=== PATIENT | male | born 1960 | race Caucasian/White ===

== ENCOUNTER 2024-01-10 10:38 | Outpatient (AMB) | payer OTHER, SELFPAY ==
[2024-01-10 10:40] VITALS: BP 142/72; PULSE 103; O2SAT 96; BMI 35.7
--- NOTE | 2024-01-10 10:40 | A.OFFPC_ITS ---
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 Allergies Latex, Natural Rubber Allergy (Mild, Verified 01/10/24 10:46) Hives Tobacco use date assessed: 01/10/24 Fall risk assessment: 1 Fall in past year Last assessed Fall Risk: 01/10/24 Dental Screening Dental Screen Date: 01/10/24 Did you have a dental visit in the last 12 months?: Yes Did you have a dental problem in the last 6 months where you did not have access to dental care?: No Was dental information given to patient?: Patient has dentist HPI HPI Comments History of Present Illness Details This is a 63-year-old male with a past medical history of hypothyroidism, hypercholesterolemia, asthma, hypertension, anxiety and rheumatoid arthritis presenting to [facility] care. His previous practice was in [place] He was last seen a little over a year ago. Transfer records pending. Rheumatoid arthritis, gout-followed by Dr. Dangelo. Current regimen is Plaquenil and allopurinol. Endorses stable symptoms. He has eye exams at the [facility] retina care center. Hypertension-prescribed amlodipine, carvedilol and lisinopril. He received prescriptions from his intramural director at [facility], Dr. Castañeda. He was referred to cardiology for evaluation of shortness of breath with exertion. Patient reports having a normal stress test. He said they did an echo, and there was something that was mildly abnormal, and they are repeating it in 1 year. He does not remember the details of this. He denies chest pain, leg swelling, palpitations. Pkmsqub-hgzr-zwyoixfoqa on Effexor 150 mg daily. Hypothyroidism-taking levothyroxine 125 mcg daily for 6 days and 1-1/2 tablets 1 day per week. Patient recalls having thyroid ultrasound which showed asymmetric thyroid tissue. Biopsy was negative per patient. GERD-symptoms for the past 15 years. On omeprazole 20 mg daily. He has recurrent symptoms if he misses doses. Does not take NSAIDs. Avoids trigger foods. Nonsmoker. He reports having a colonoscopy about 5 years ago, and he says he was told to return in 10 years. He has never had an endoscopy. Nonsmoker. No dysphagia. Asthma, allergies-no systemic steroids within the past year. Patient is on Pulmicort. He uses albuterol as needed. They requirement varies. If allergies are bad or he is sick he may use it every day but otherwise uses this once or twice per week. He is on Amara and Flonase. Medications help but do not completely alleviate symptoms. Endorses chronic postnasal drip and congestion. He gets sinus infections, but he does not get more than one or 2 a year. Years ago he received allergy injections. He has a dog, and he says he is allergic. He wonders if allergy symptoms and congestion contribute to chronic balance issues that started around when he had COVID. He discussed this with his cotton broker, and he is getting physical therapy to help strengthen and improve balance at the [facility] treatment center. Reports having a CT scan of the head within the past year that was normal. ROS: Constitutional: No unexplained weight loss, fever, chills or night sweats. ENT: No hearing loss, ear pain, sore throat, sinus pain. see HPI Respiratory: see HPI Cardiovascular: No chest pain, chest pressure or chest discomfort. No pa lpitations or pedal edema. Psychiatric: No depression. No SI/HI. Physical exam: Constitutional: Alert, in no distress. Head: Normocephalic. Eyes: Pupils are equal, round and reactive to light. Extraocular muscles intact. Ear, Nose and Throat: Ear canals are completely occluded by brown cerumen. Nasal mucosa pale. Inferior turbinates 1+.. No nasal discharge. No oral lesions. Neck: Supple, Full range of motion. No lymphadenopathy. Respiratory: Clear to auscultation. Cardiovascular: S1 S2 regular. No murmurs. Extremities: Warm and well perfused. No clubbing, cyanosis or edema. [facility] Medical History (Updated 01/10/24 @ 13:15 by TG Lacey) GERD (gastroesophageal reflux disease) Cerumen impaction Anxiety Mild persistent asthma in adult without complication Jailene's disease History of inguinal hernia Pure hypercholesterolemia Essential hypertension Balance problem Bilateral tinnitus Rhinosinusitis Rheumatoid arthritis Hernia Sinus problem COVID Pneumonia Asthma Surgical History (Updated 01/10/24 @ 11:29 by TG Lacey) History of inguinal hernia repair History of umbilical hernia repair Family History (Updated 01/10/24 @ 11:31 by TG Lacey) Mother Asthma Arthritis Father Heart attack Maternal Aunt Breast cancer Maternal Grandfather Stomach cancer Pancreatic cancer Social History (Updated 01/10/24 @ 10:58 by Dionna Brannon [facility]) Household Members Other:: brother Both parents involved: No Caregiver staying overnight: No Housing: House Are you a primary patient care provider to a significant other at home: No Do you presently have visiting nurse or other home services: No 75 years or older and lives alone: No Alcohol intake: never Patient Tobacco Use Status: Never used Tobacco e-Cigarette/Vaping Use: Never Used Special madison needs: No Agree to transfusion: Yes service: No Current occupational status: retired Cognitive needs: No Hearing needs: No Vision needs: Yes (Patient wears glasses.) Questionnaire PHQ-9 Over the last 2 weeks, how often have you been bothered by any of the following problems? 1. Little interest or pleasure in doing things: not at all 2. Feeling down, depressed, or hopeless: several days 3. Trouble falling or staying asleep, or sleeping too much: not at all 4. Feeling tired or having little energy: several days 5. Poor appetite or overeating: not at all 6. Feeling bad about yourself - or that you are a failure or have let yourself or your family down: not at all 7. Trouble concentrating on things, such as reading the newspaper or watching television: not at all 8. Moving or speaking so slowly that other people could have noticed. Or the opposite - being so fidgety or restless that you have been moving around a lot more than usual: not at all 9. Thoughts that you would be better off or of hurting yourself in some way: not at all Total score: 2 Depression Screening Interpretation: Negative Depression Screening Done: Yes Source: Developed by Drs. Dany Mcgovern, Alida Flores, Ranjit Triana and colleagues, with an educational zeina from [employer] Thrive Questionnaire Date Thrive assessed: 01/10/24 I am a: Patient What is your living situation today?: I have a steady place to live Within the past 12 months, did the food you bought not last and you didn't have the money to get more?: Never true Within the past 12 months, did you worry whether your food would run out before you got money to buy more?: Never true Do you have trouble paying for medicines?: No Do you have trouble getting transportation to medical appointments?: No Do you have trouble paying your heating and electricity bill?: No Do you have trouble taking care of your child, family member or friend?: No Do you have trouble with day-to-day activities such as bathing, preparing meals, shopping, managing finances, etc.?: Yes (Balance is a factor) Are you currently unemployed and looking for a job?: No Are you interested in more education?: No THRIVE Score: 0 AUDIT C Alcohol Use Questionnaire (AUDIT-C) 1. How often do you have a drink containing alcohol?: Monthly or less 2. How many drinks containing alcohol do you have on a typical day when you are drinking?: 1 or 2 3. How often do you have six or more drinks on one occasion?: Never Total Score: 1 ZARIA-7 AMB Questionnaire ZARIA-7 Date ZARIA - 7 assessed: 01/10/24 Feeling nervous, anxious, or on edge: 1 = Several days Not being able to stop or control worryin = Not at all Worrying too much about different things: 1 = Several days Trouble relaxin = Not at all Being so restless that it is hard to sit still: 0 = Not at all Becoming easily annoyed or irritable: 1 = Several days (once in a while) Feeling afraid as if something awful might happen: 0 = Not at all Total ZARIA-7 score (0-4 normal; 5-9 mild; 10-14 moderate; 15-21 severe): 3 Source: Developed by Drs. Dany Mcgovern, Alida Flores, Ranjit Triana and colleagues, with an educational zeina from [employer] ACT Questionnaire In the past 4 weeks, how much of the time did your asthma keep you from getting as much done at work, school or at home?: Some of the time During the past 4 weeks, how often have you had shortness of breath?: 1-2 times a week During the past 4 weeks, how often did your asthma symptoms wake you up at night or earlier than usual in the morning?: Once or twice per week During the past 4 weeks, how often have you had to use your rescue inhaler or nebulizer medication?: 2-3 times a week How would you rate your asthma control during the past 4 weeks?: Well controlled Score: 18 Physical exam (Primary Care) Vital Signs: Last Vital Signs Pulse 103 H 01/10/24 10:40 BP 142/72 H 01/10/24 10:40 Pulse Ox 96 01/10/24 10:40 Oxygen Delivery Method Room Air 01/10/24 10:40 BMI result Body Mass Index 35.7 Tobacco/Smoking Status: Tobacco use Status Tobacco use date assessed 01/10/24 01/10/24 11:10 Patient Tobacco Use Status Never used Tobacco 01/10/24 11:10 e-Cigarette/Vaping Use Never Used 01/10/24 11:10 PHQ-9: PHQ-9 Score PHQ-9: Total score 2 01/10/24 11:10 Depression Screening Interpretation: Negative Thrive Assessment: Date of Thrive Assessment Date Thrive assessed 01/10/24 01/10/24 11:10 Assessment and Plan Assessment & Plan (1) Pure hypercholesterolemia: Code(s): E78.00 - Pure hypercholesterolemia, unspecified Plan: Continue atorvastatin and check lipid profile. (2) Essential hypertension: Code(s): I10 - Essential (primary) hypertension Plan: Patient admits he a little anxious of the appointment today. BP and heart rate mildly elevated. Continue meds. Recheck at follow up in 1-2 weeks. Avoid caffeine. Follow low-sodium diet. 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 Continue levothyroxine. (4) Rhinosinusitis: Code(s): J32.9 - Chronic sinusitis, unspecified Plan: Continue Amara and Flonase. Referred to Allergy and immunology. (5) Mild persistent asthma in adult without complication: Code(s): J45.30 - Mild persistent asthma, uncomplicated Plan: Stable. Continue Pulmicort and albuterol as needed. (6) Anxiety: Code(s): F41.9 - Anxiety disorder, unspecified Plan: Stable. Continue Effexor. (7) Cerumen impaction: Code(s): H61.20 - Impacted cerumen, unspecified ear Qualifiers: Laterality: bilateral Qualified Code(s): H61.23 - Impacted cerumen, bilateral Plan: Debrox drops and return for irritation. This may be contributing to balance issues. Follow up in 1-2 weeks for irrigation. (8) GERD (gastroesophageal reflux disease): Code(s): K21.9 - Gastro-esophageal reflux disease without esophagitis Qualifiers: Esophagitis presence: without esophagitis Qualified Code(s): K21.9 - Gastro-esophageal reflux disease without esophagitis Plan: Symptoms are controlled on omeprazole, but he is taken it daily for the past 15 years. He has never had an EGD. Refer to Gastroenterology. Continue avoidance of trigger foods. Orders: Orders TSH reflex Free T4 Today E06.3 - Autoimmune thyroiditis Basic Metabolic Panel Today I10 - Essential (primary) hypertension Prostate Specific Antigen Scr Today Z12.5 - Encounter for screening for malignant neoplasm of prostate Lipid Panel Today E78.00 - Pure hypercholesterolemia, unspecified Referrals Gastroenterology Referral K21.9 - Gastro-esophageal reflux disease without esophagitis Allergy & Immunology Referral J32.9 - Chronic sinusitis, unspecified, J45.30 - Mild persistent asthma, uncomplicated Medications: New albuterol sulfate 90 mcg/actuation 2 puffs inhalation Q4H PRN 8.5 grams 2RF Cough wheezing or shortness of breath levothyroxine Take 1 tablet by mouth daily Wednesday through Wednesday and 1.5 tablets by mouth on Wednesday. 125 mcg PO DAILY 96 tabs 3RF carbamide peroxide 6.5% (Debrox) 5 drps otic (ears) DAILY 4 days 15 mL 0RF atorvastatin 20 mg PO DAILY 90 tabs 3RF venlafaxine ER 150 mg PO DAILY 90 caps 3RF Coding Level of Care Code New Pt Level 4 (48125) Complex EM visit Add On G2211 Diagnoses Pure hypercholesterolemia E78.00 Essential hypertension I10 Jailene's disease E06.3 Rhinosinusitis J32.9 Mild persistent asthma in adult without complication J45.30 Anxiety F41.9 Bilateral impacted cerumen H61.23 Laterality: bilateral Gastroesophageal reflux disease without esophagitis K21.9 Esophagitis presence: without esophagitis
== END 2024-01-10 11:50 | disposition home or self-care (01) ==
PROVIDERS: PCP Physician Assistant Medical; Visit Provider Physician Assistant Medical
DX: E78.00 Pure hypercholesterolemia, unspecified (principal); I10 Essential (primary) hypertension; E06.3 Autoimmune thyroiditis; J32.9 Chronic sinusitis, unspecified; J45.30 Mild persistent asthma, uncomplicated; F41.9 Anxiety disorder, unspecified; H61.23 Impacted cerumen, bilateral; K21.9 Gastro-esophageal reflux disease without esophagitis
CPT/HCPCS: 99204; G2211

== ENCOUNTER 2024-01-31 14:37 | Outpatient (AMB) | payer OTHER, SELFPAY ==
--- NOTE | 2024-01-31 14:43 | A.OFFPC_ITS ---
Vital Signs 01/31/24 14:49 Height 5 ft 2.01 in Weight 206 lb 2 oz BMI 37.7 BP 100/70 Blood Pressure Location Lt brachial Position Sitting Respiration 20 Pulse 80 Pulse Source Palpation Temp 98.8 F Temp Source Oral Intake Visit Reasons: BP recheck and ear flush 30 minutes Intake Note: b/p recheck and bilateral ear lavage Allergies Latex, Natural Rubber Allergy (Mild, Verified 01/31/24 14:45) Hives Tobacco use date assessed: 01/10/24 Fall risk assessment: 1 Fall in past year Last assessed Fall Risk: 01/31/24 Dental Screening Dental Screen Date: 01/31/24 Did you have a dental visit in the last 12 months?: Yes Did you have a dental problem in the last 6 months where you did not have access to dental care?: Yes Was dental information given to patient?: Patient has dentist HPI HPI Comments History of Present Illness Details This is a 63-year-old male with a past medical history of hypothyroidism, hypercholesterolemia, asthma, hypertension, anxiety and rheumatoid arthritis presenting for a BP check and ear lavage. Hypertension-prescribed amlodipine, carvedilol and lisinopril. 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 Castañeda. He was referred to cardiology for evaluation of shortness of breath with exertion. Patient reports having a normal stress test. He said they did an echo, and there was something that was mildly abnormal, and they are repeating it in 1 year. He does not remember the details of this. He denies chest pain, leg swelling, palpitations. His blood pressure was mildly elevated as well as his heart rate at his initial visit. This is not the case today. He was a little bit nervous at the 1st appointment. The patient used Debrox drops for 4 days to have his ears flushed today. He was contacted by Allergy and immunology. He will call them back to set up an appointment. He endorsed chronic balance issues that started when he had COVID 3 years ago. 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 He's able to control it more with PT. He had a CT scan done at [facility] within the past year which was normal. He would like to see Neurology there for evaluation. No room spinning or lightheadedness. ROS: Constitutional: No unexplained weight loss, fever, chills or night sweats. ENT: No hearing loss, ear pain, sore throat, sinus pain. see HPI Respiratory: see HPI Cardiovascular: No chest pain Neurologic: No headache, numbness, tingling, seizures, tremors. Physical exam: Constitutional: Alert, in no distress. Head: Normocephalic. Eyes: Pupils are equal, round and reactive to light. Extraocular muscles intact. Ear, Nose and Throat: Ear canals are completely occluded by brown cerumen prior to procedure. After irrigation canals are clear, TMs zambrano, intact, good light reflexes. Nasal mucosa pale. Inferior turbinates 1+.. No nasal discharge. No oral lesions. Neck: Supple, Full range of motion. No lymphadenopathy. Neurologic:?Alert and oriented x 3, no focal deficits observed, CN 2-12 intact, muxqwk-zqez-cudfrg normal, sensation equal and symmetric, strength UE and LE 5/5 bilaterally, reflexes equal and symmetric.? Normal gait.? Patient unable to walk heel-toe or on his toes due to poor balance.? No pronator drift.? Negative Romberg. Respiratory: Clear to auscultation. Cardiovascular: S1 S2 regular. No murmurs. Extremities: Warm and well perfused. No clubbing, cyanosis or edema. [facility] Medical History (Updated 01/10/24 @ 13:15 by TG Lacey) GERD (gastroesophageal reflux disease) Cerumen impaction Anxiety Mild persistent asthma in adult without complication Jailene's disease History of inguinal hernia Pure hypercholesterolemia Essential hypertension Balance problem Bilateral tinnitus Rhinosinusitis Rheumatoid arthritis Hernia Sinus problem COVID Pneumonia Asthma Surgical History (Updated 01/10/24 @ 11:29 by TG Lacey) History of inguinal hernia repair History of umbilical hernia repair Family History (Updated 01/10/24 @ 11:31 by TG Lacey) Mother Asthma Arthritis Father Heart attack Maternal Aunt Breast cancer Maternal Grandfather Stomach cancer Pancreatic cancer Social History (Updated 01/10/24 @ 10:58 by Dionna Brannon CMA) Household Members Other:: brother Both parents involved: No Caregiver staying overnight: No Housing: House Are you a primary career technical counselor to a significant other at home: No Do you presently have visiting nurse or other home services: No 75 years or older and lives alone: No Alcohol intake: never Patient Tobacco Use Status: Never used Tobacco e-Cigarette/Vaping Use: Never Used Special madison needs: No Agree to transfusion: Yes service: No Current occupational status: retired Cognitive needs: No Hearing needs: No Vision needs: Yes (Patient wears glasses.) Questionnaire Thrive Questionnaire Date Thrive assessed: 01/10/24 ZARIA-7 AMB Questionnaire ZARIA-7 Date ZARIA - 7 assessed: 01/10/24 Source: Developed by Drs. Dany Mcgovern, Alida Flores, Ranjit Triana and colleagues, with an educational zeina from [employer]. Physical exam (Primary Care) Vital Signs: Last Vital Signs Temp 98.8 F 01/31/24 14:49 Pulse 80 01/31/24 14:49 Resp 20 01/31/24 14:49 BP 100/70 01/31/24 14:49 BMI result Body Mass Index 37.7 Tobacco/Smoking Status: Tobacco use Status Tobacco use date assessed 01/10/24 01/31/24 14:46 Patient Tobacco Use Status Never used Tobacco 01/31/24 14:46 e-Cigarette/Vaping Use Never Used 01/31/24 14:46 Thrive Assessment: Date of Thrive Assessment Date Thrive assessed 01/10/24 01/31/24 14:46 Assessment and Plan Assessment & Plan (1) Impacted cerumen of both ears: Code(s): H61.23 - Impacted cerumen, bilateral Plan: Successful irrigation today. Avoid using Q-tips. (2) Essential hypertension: Code(s): I10 - Essential (primary) hypertension Plan: Continue current regimen. (3) Balance problem: Code(s): R26.89 - Other abnormalities of gait and mobility Plan: Patient will see if symptoms resolve following cerumen removal today. Referred to [facility] Neurology at patient's request. If symptoms resolve we can cancel referral. MRI ordered. Plan Follow up in 6 months for CPE. Orders: Orders MR head/brain wo con Today R26.89 - Other abnormalities of gait and mobility Referrals Neurology Referral R26.89 - Other abnormalities of gait and mobility Coding Level of Care Code Est Pt Level 4 (92385) Complex EM visit Add On G2211 Diagnoses Impacted cerumen of both ears H61.23 Essential hypertension I10 Balance problem R26.89
[2024-01-31 14:49] VITALS: BP 100/70; PULSE 80; RESP 20; TEMP 37.1; BMI 37.7
== END 2024-01-31 15:28 | disposition home or self-care (01) ==
PROVIDERS: PCP Physician Assistant Medical; Visit Provider Physician Assistant Medical
DX: I10 Essential (primary) hypertension (principal); R26.89 Other abnormalities of gait and mobility; H61.23 Impacted cerumen, bilateral
CPT/HCPCS: 69209; 99213; G2211

== ENCOUNTER → 2024-03-24 16:41 | Outpatient (BNV) | payer OTHER, SELFPAY | PROVIDERS: PCP Physician Assistant Medical; Visit Provider Radiology Diagnostic Radiology | DX: R53.1 Weakness (principal) | CPT/HCPCS: 70551 ==

== ENCOUNTER 2024-03-24 16:48 | Outpatient (REF) | payer OTHER, SELFPAY ==
--- NOTE | ~2024-03-24 | MR_ITS ---
EXAMINATION: MR BRAIN WITHOUT CONTRAST CLINICAL INFORMATION: Weakness, bilaterally. Vertigo. Ringing in both ears. COMPARISON: None available. TECHNIQUE: MRI of the brain was obtained using routine sequences without contrast. FINDINGS: No restricted diffusion. No acute intracranial hemorrhage, mass effect, midline shift, hydrocephalus or herniation. Vyas-white matter differentiation is normal. Multifocal patchy deep periventricular white matter hyperintense T2 FLAIR signal involving centrum semiovale and mccracken radiata. Old lacunar infarcts with the cribriform shaped involving basal ganglia and mccracken radiata matter. Prominence of the extra-axial CSF spaces, cerebral sulci and ventricles likely central volume loss. Sellar/suprasellar region is normal. Craniocervical junction is intact and normal. Flow-void signal within the mean vessels is normal. There is a 2.3 cm lobulated isointense T1 hyperintense T2 FLAIR nonprotected signal lesion in the posterior superficial right parotid gland. MR/MR head/brain wo con IMPRESSION: No acute brain abnormality. Atrophy, cerebral. Small vessel occlusive disease. 2.3 cm lesion, superficial right parotid gland. 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
== END 2024-03-24 16:49 | disposition home or self-care (01) ==
LOC: HO.MRI 16:48
PROVIDERS: PCP Physician Assistant Medical; Visit Provider Physician Assistant Medical
DX: R26.89 Other abnormalities of gait and mobility (principal)
CPT/HCPCS: 70551

== ENCOUNTER 2024-09-04 14:08 | Outpatient (AMB) | payer OTHER, SELFPAY ==
--- NOTE | 2024-09-04 14:35 | A.OFFPC_ITS ---
Vital Signs 09/04/24 14:41 Weight 218 lb BP 126/82 Blood Pressure Location Lt brachial Position Sitting Respiration 14 Pulse 86 Pulse Source Pulse Oximeter Pulse Oximetry (%) 96 Oxygen Delivery Method Room Air Intake Visit Reasons: Annual PE Intake Note: Physical Technical Services Consultant Required: No Allergies Latex, Natural Rubber Allergy (Mild, Verified 09/04/24 14:36) Hives Tobacco use date assessed: 09/04/24 Fall risk assessment: No Falls in past year Last assessed Fall Risk: 09/04/24 Dental Screening Dental Screen Date: 01/31/24 HPI HPI Comments History of Present Illness Details This is a 64-year-old male with a past medical history of hypothyroidism, hypercholesterolemia, asthma, hypertension, anxiety and rheumatoid arthritis presenting for a physical exam. Hypertension-prescribed amlodipine, carvedilol and lisinopril. 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 Castañeda. Patient saw Allergy and immunology at a got a last week. They switched his inhaler. He is also going to have a chest x-ray done and blood work to evaluate allergies. As you recall he has chronic balance issues that started when he had COVID 3 years ago. He discussed it with his senior oracle pl sql developer, and he is getting physical therapy to help strengthen and improve balance at the [facility] treatment center. He's able to control it more with PT. He has an appointment at [facility] in 12/22/2024. No room spinning or lightheadedness. He had COVID-19 again a month ago, but he is recovered. 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 He had fasting labs done, and his LDL cholesterol is elevated at 116. He is on 20 mg of atorvastatin. He also reported having a lump for a couple of years in the parotid area, and his prior PCP thought it has been a lymph node. He was agreeable to ENT consult, but he did not hear about this. He has no history of tobacco use. His fasting glucose level was 108 when he had blood work done on 05/18/2024. Hemoglobin A1c was ordered, but he did not have it completed yet. Labs 05/18/2024 Total cholesterol 250 Triglycerides 287 LDL 116 HDL 49 PSA 0.5 Creatinine 0.87 GFR 96 AST 23 ALT 29 TSH 3.64 Colonoscopy: [facility] repeat in 10 years. UTD. He will get the high dose flu vaccine and tetanus vaccination at the pharmacy. We only had Boostrix here which may contain latex , and he has an allergy. ROS: Constitutional: No unexplained weight loss, fever, chills or night sweats. Eyes: No vision changes, blurry vision, double vision, eye pain, eye redness, eye discharge. ENT: No hearing loss, sneezing, congestion, runny nose or sore throat. Respiratory: No shortness of breath, cough or sputum production. Cardiovascular: No chest pain, chest pressure or chest discomfort. No palpitations or pedal edema. Gastrointestinal: No anorexia, nausea, vomiting or diarrhea. No abdominal pain or blood in stool. Genitourinary: No dysuria, hematuria, urinary frequency. Neurologic: No headache, syncope, unilateral weakness, ataxia, numbness or tingling in the extremities. Musculoskeletal: No back pain Hematologic/Lymphatics: No bleeding or bruising. No painful lymph nodes. Skin: No rash or itching. Endocrine: No cold or heat intolerance. No polyuria or polydipsia. Psychiatric: No SI/HI. Physical exam: Constitutional: Alert, in no distress. Head: Normocephalic. Eyes: Pupils are equal, round and reactive to light. Extraocular muscles intact. Ear, Nose and Throat: Canals clear. TMs normal. Normal nasal mucosa. No nasal discharge. No oral lesions. Neck: Supple, Full range of motion. No lymphadenopathy. No palpable thyroid masses. Respiratory: Clear to auscultation. Cardiovascular: S1 S2 regular. No murmurs. No carotid bruits. Gastrointestinal: Abdomen soft, non-tender, non-distended. Normal bowel sounds. No palpable masses. Genitourinary: Deferred Neurologic: No focal neurological deficits. Symmetric patellar reflexes. Moves all extremities spontaneously. Sensation intact bilaterally. Skin: No rashes or lesions. Musculoskeletal: No gross deformities. Normal range of motion. Extremities: Warm and well perfused. No clubbing, cyanosis or edema. 3+ peripheral pulses bilaterally. Psychiatric: Normal mood and affect [facility] Medical History (Updated 09/05/24 @ 09:28 by TG Lacey) Old lacunar stroke without late effect Small vessel disease, cerebrovascular Routine physical examination Mass of right parotid gland IFG (impaired fasting glucose) GERD (gastroesophageal reflux disease) Cerumen impaction Anxiety Mild persistent asthma in adult without complication Jailene's disease History of inguinal hernia Pure hypercholesterolemia Essential hypertension Balance problem Bilateral tinnitus Rhinosinusitis Rheumatoid arthritis Hernia Sinus problem COVID Pneumonia Asthma Surgical History History of inguinal hernia repair History of umbilical hernia repair Family History Mother Asthma Arthritis Father Heart attack Maternal Aunt Breast cancer Maternal Grandfather Stomach cancer Pancreatic cancer Social History (Updated 09/04/24 @ 16:35 by Carmen Weller CMA) Household Members Other:: brother Both parents involved: No Caregiver staying overnight: No Housing: House Are you a primary career and technology education teacher to a significant other at home: No Do you presently have visiting nurse or other home services: No 75 years or older and lives alone: No Alcohol intake: current Patient Tobacco Use Status: Never used Tobacco e-Cigarette/Vaping Use: Never Used Use of substances other than those prescribed or required for medical reasons: No Special madison needs: No Agree to transfusion: Yes service: No Current occupational status: retired Cognitive needs: No Hearing needs: No Vision needs: Yes (Patient wears glasses.) Questionnaire PHQ-9 Over the last 2 weeks, how often have you been bothered by any of the following problems? 1. Little interest or pleasure in doing things: several days 2. Feeling down, depressed, or hopeless: several days 3. Trouble falling or staying asleep, or sleeping too much: several days 4. Feeling tired or having little energy: several days 5. Poor appetite or overeating: not at all 6. Feeling bad about yourself - or that you are a failure or have let yourself or your family down: not at all 7. Trouble concentrating on things, such as reading the newspaper or watching television: not at all 8. Moving or speaking so slowly that other people could have noticed. Or the opposite - being so fidgety or restless that you have been moving around a lot more than usual: not at all 9. Thoughts that you would be better off or of hurting yourself in some way: not at all Total score: 4 Depression Screening Interpretation: Positive Depression Screening Follow-up: Follow-up Visit Requested Depression Screening Done: Yes 01017 - PHQ-9 Billing: Yes Source: Developed by Drs. Dany Mcgovern, Alida Flores, Ranjit Triana and colleagues, with an educational zeina from [employer]. Thrive Questionnaire Date Thrive assessed: 09/04/24 I am a: Patient What is your living situation today?: I have a steady place to live Within the past 12 months, did the food you bought not last and you didn't have the money to get more?: Never true Within the past 12 months, did you worry whether your food would run out before you got money to buy more?: Never true Do you have trouble paying for medicines?: No Do you have trouble getting transportation to medical appointments?: No Do you have trouble paying your heating and electricity bill?: No Do you have trouble taking care of your child, family member or friend?: No Do you have trouble with day-to-day activities such as bathing, preparing meals, shopping, managing finances, etc.?: Yes Are you currently unemployed and looking for a job?: No Are you interested in more education?: No Please select the resources that you would like help with: None Currently or been in a relationship where the following occur: No concerns reported THRIVE Score: 0 AUDIT C Alcohol Use Questionnaire (AUDIT-C) 1. How often do you have a drink containing alcohol?: Monthly or less 2. How many drinks containing alcohol do you have on a typical day when you are drinking?: 1 or 2 3. How often do you have six or more drinks on one occasion?: Never Total Score: 1 ZARIA-7 AMB Questionnaire ZARIA-7 Date ZARIA - 7 assessed: 09/04/24 Feeling nervous, anxious, or on edge: 2 = More than half the days Not being able to stop or control worryin = Several days Worrying too much about different things: 1 = Several days Trouble relaxin = Several days Being so restless that it is hard to sit still: 0 = Not at all Becoming easily annoyed or irritable: 1 = Several days Feeling afraid as if something awful might happen: 1 = Several days Total ZARIA-7 score (0-4 normal; 5-9 mild; 10-14 moderate; 15-21 severe): 7 Source: Developed by Drs. Dany Mcgovern, Alida Flores, Ranjit Triana and colleagues, with an educational zeina from [employer]. ZARIA-7 Assessment Billing ZARIA-7 Assessment Tool: ZARIA-7 Assessment 79858 Physical exam (Primary Care) Vital Signs: Last Vital Signs Pulse 86 09/04/24 14:41 Resp 14 09/04/24 14:41 BP 126/82 09/04/24 14:41 Pulse Ox 96 09/04/24 14:41 Oxygen Delivery Method Room Air 09/04/24 14:41 Tobacco/Smoking Status: Tobacco use Status Tobacco use date assessed 09/04/24 09/04/24 14:38 Patient Tobacco Use Status Never used Tobacco 09/04/24 14:38 e-Cigarette/Vaping Use Never Used 09/04/24 14:38 PHQ-9: PHQ-9 Score PHQ-9: Total score 4 09/04/24 17:36 Depression Screening Interpretation: Positive Depression Screening Follow-up: Follow-up Visit Requested Thrive Assessment: Date of Thrive Assessment Date Thrive assessed 09/04/24 09/04/24 16:35 Currently or been in a relationship where the following occur: No concerns reported Coding Level of Care Code Est Pt Level 3 (68531) Est Pt Prev Care >65y(99958) Diagnoses Routine physical examination Z00.00 Mass of right parotid gland K11.8 IFG (impaired fasting glucose) R73.01 Mild persistent asthma in adult without complication J45.30 Jailene's disease E06.3 Pure hypercholesterolemia E78.00 Essential hypertension I10 Balance problem R26.89 Small vessel disease, cerebrovascular I67.9 Rheumatoid arthritis M06.9 Additional Codes ZARIA-7 Assessment Billing - ZARIA-7 Assessment Tool: ZARIA-7 Assessment 34491 ([id number]) PHQ-9 - 47867 - PHQ-9 Billing: Yes ([id number]) Assessment & Plan Assessment & Plan (1) Routine physical examination: Code(s): Z00.00 - Encounter for general adult medical examination without abnormal findings Category: Medical Plan: Patient is seen today for a routine physical. As part of this visit we reviewed the following issues, which are considered and essential part of preventative health in this age group: - Screening for colon cancer - Blood pressure screening - Cholesterol screening - Nutritional and exercise counseling - Counseling of injury prevention including fire prevention, smoke alarms and seat belt usage - Education about skin cancer - Recommendations about immunizations - Recommendation of an eye exam - Screening for substance abuse (2) Mass of right parotid gland: Code(s): K11.8 - Other diseases of salivary glands Category: Medical Plan: Per MRI report this is likely a benign growth. Referred anew to ENT for further management. (3) IFG (impaired fasting glucose): Code(s): R73.01 - Impaired fasting glucose Category: Medical Plan: Check hemoglobin A1c. (4) Mild persistent asthma in adult without complication: Code(s): J45.30 - Mild persistent asthma, uncomplicated Category: Medical Plan: Continue management per Allergy and immunology. 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 Continue levothyroxine. (6) Pure hypercholesterolemia: Code(s): E78.00 - Pure hypercholesterolemia, unspecified Category: Medical Plan: Given MRI findings recommend LDL goal less than 70. Increase atorvastatin to 40 mg daily. Recheck lipid profile and LFTs in 6-7 weeks. Followed by telehealth appointment in 8 weeks to review results. Recommended Mediterranean diet and weight loss. (7) Essential hypertension: Code(s): I10 - Essential (primary) hypertension Category: Medical Plan: Continue current regimen. Recommended low-sodium diet and avoidance of caffeine. Recommended weight loss. (8) Balance problem: Code(s): R26.89 - Other abnormalities of gait and mobility Category: Medical Plan: Patient undergoing physical therapy ordered by Rheumatology, and he has a neurology consult scheduled this summer. Symptoms are stable. (9) Small vessel disease, cerebrovascular: Code(s): I67.9 - Cerebrovascular disease, unspecified Category: Medical Plan: Recommend avoidance of smoking, alcohol and modifying risk factors like hypertension and hyperlipidemia. See above notes regarding statin. He has a neurology consult scheduled this summer. (10) Rheumatoid arthritis: Code(s): M06.9 - Rheumatoid arthritis, unspecified Category: Medical Plan: Continue management per Neurology. Plan Follow up in 8 weeks to review lab results. Orders: Orders Lipid Panel 09/04/24 E78.00 - Pure hypercholesterolemia, unspecified, E78.5 - Hyperlipidemia, unspecified Alanine Aminotransferase 09/04/24 E78.00 - Pure hypercholesterolemia, unspecified, R79.89 - Other specified abnormal findings of blood chemistry Aspartate Amino Transferase 09/04/24 E78.00 - Pure hypercholesterolemia, unspecified Referrals Ear/Nose/Throat Referral K11.8 - Other diseases of salivary glands Medications: New atorvastatin 40 mg PO BEDTIME 90 tabs 3RF Discontinued atorvastatin Discontinued Reason: Doctor's Order 20 mg PO DAILY 90 tabs 3RF
[2024-09-04 14:41] VITALS: BP 126/82; PULSE 86; RESP 14; O2SAT 96
== END 2024-09-04 15:37 | disposition home or self-care (01) ==
PROVIDERS: PCP Physician Assistant Medical; Visit Provider Physician Assistant Medical
DX: Z00.00 Encounter for general adult medical examination without abnormal findings (principal); K11.8 Other diseases of salivary glands; R73.01 Impaired fasting glucose; M06.9 Rheumatoid arthritis, unspecified; J45.30 Mild persistent asthma, uncomplicated; E06.3 Autoimmune thyroiditis; E78.00 Pure hypercholesterolemia, unspecified; I10 Essential (primary) hypertension; R26.89 Other abnormalities of gait and mobility; I67.9 Cerebrovascular disease, unspecified

== ENCOUNTER → 2024-09-04 14:08 | Outpatient (BNVA) | payer OTHER, SELFPAY | PROVIDERS: PCP Physician Assistant Medical; Visit Provider Physician Assistant Medical | DX: Z00.00 Encounter for general adult medical examination without abnormal findings (principal); K11.8 Other diseases of salivary glands; R73.01 Impaired fasting glucose; J45.30 Mild persistent asthma, uncomplicated; E06.3 Autoimmune thyroiditis; E78.00 Pure hypercholesterolemia, unspecified; I10 Essential (primary) hypertension; R26.89 Other abnormalities of gait and mobility; I67.9 Cerebrovascular disease, unspecified; M06.9 Rheumatoid arthritis, unspecified; Z79.899 Other long term (current) drug therapy | CPT/HCPCS: 96127 ==